=== PATIENT | female | born 1990 | race African-American/Black ===

== ENCOUNTER 2021-03-10 04:45 | Inpatient (IN) | payer BC ==
[2021-03-10] MEDS: DEXTROSE 5%-LACTATED RINGERS 1,000 ML IV SCH ×3 (05:10→14:00)
[2021-03-10 05:34] VITALS: BMI 35.7
[2021-03-10] MEDS ORDERED: BUTORPHANOL TARTRATE 1 MG/ML VIAL IVPB PRN (05:59)
[2021-03-10] MEDS ORDERED: PROMETHAZINE HCL 25 MG/1 ML VIAL IVPUSH ONE (05:59)
[2021-03-10] MEDS ORDERED: ELECTROLYTE-148 SOLN 1,000 ML IV SCH (06:00)
[2021-03-10] MEDS ORDERED: OXYTOCIN 20 UNITS in 0.9% NS 20 UNIT/1,000 ML INFUS.BAG IV ONE (15:11)
[2021-03-10] MEDS ORDERED: PROMETHAZINE HCL 25 MG/1 ML VIAL ONE (15:40)
[2021-03-10] MEDS ORDERED: BUTORPHANOL TARTRATE 2 MG/ML VIAL ONE (15:40)
[2021-03-10 21:31] LABS: CORD BASE EXCESS -6.2 mmol/L (0-2); CORD HCO3 19.2 mmHg (20-29); CORD PCO2 37.8 mmHg (30-78); CORD pH 7.323 (7.14-7.44)
[2021-03-10] MEDS ORDERED: BENZOCAINE 28 GM HEMORRHOIDAL OINTMENT PR PRN (22:14)
[2021-03-10] MEDS ORDERED: WITCH HAZEL 50% (TUCKS) 40 PAD/JAR PAD TP PRN (22:14)
[2021-03-10] MEDS ORDERED: METHYLERGONOVINE MALEATE 0.2 MG/1 ML AMP IM PRN (22:14)
[2021-03-10] MEDS ORDERED: oxyCODONE HCL 5 MG TABLET PO PRN (22:14)
[2021-03-10] MEDS ORDERED: BISACODYL 10 MG SUPP.RECT PR PRN (22:14)
[2021-03-10] MEDS ORDERED: ACETAMINOPHEN 325 MG TABLET (FP) PO PRN (22:14)
[2021-03-10] MEDS ORDERED: OXYTOCIN 20 UNITS in 0.9% NS 20 UNIT/1,000 ML INFUS.BAG IV SCH (22:30)
[2021-03-10] MEDS: IBUPROFEN 600 MG TABLET (FP) PO PRN (23:19)
[2021-03-10] MEDS: BENZOCAINE 20% 57 GM BOTTLE TP PRN (23:20)
[2021-03-11 07:17] LABS: BASO % 0.6 % (0-2.0); EOS % 0.2 % (0-4.5); HEMATOCRIT 34.3 % (32.4-45.2); HEMOGLOBIN 12.1 GM/dL (10.7-15.3); LYMPH % 14.7 % (8-40); MCH 32.1 pg (25.7-33.7); MCHC 35.3 g/dl (32.0-36.0); MEAN CELL VOLUME 91.1 fl (80-96); MEAN PLT VOLUME 9.2 fl (7.5-11.1); NEUT % 72.5 % (42.8-82.8); PLATELET COUNT 147 10^3/uL (134-434); RBC 3.76 M/mm3 (3.60-5.2); RDW 13.7 % (11.6-15.6); WHITE BLOOD COUNT 9.1 K/mm3 (4.0-10.0)
[2021-03-11] MEDS: IBUPROFEN 600 MG TABLET (FP) PO PRN ×2 (10:13→22:16)
[2021-03-11] MEDS ORDERED: SENNOSIDES/DOCUSATE COMBO (SENNA PLUS) TABLET (UD) PO SCH (22:00)
[2021-03-12] MEDS: IBUPROFEN 600 MG TABLET (FP) PO PRN (09:31)
[2021-03-12] MEDS: BENZOCAINE 20% 57 GM BOTTLE TP PRN (09:44)
[2021-03-12 14:00] VITALS: BP 118/68; PULSE 76; TEMP 98.2
== END 2021-03-12 13:30 | disposition home or self-care (01) | DRG 807 ==
LOC: JDEL 04:45 → JLDR 05:10 → J3W 22:27
PROVIDERS: ADMIT Obstetrics & Gynecology; ATTEND Obstetrics & Gynecology
PROC: 10E0XZZ Delivery of Products of Conception, External Approach (ICD-10-PCS; principal; 2021-03-10)
PROC: 10907ZC Drainage of Amniotic Fluid, Therapeutic from Products of Conception, Via Natural or Artificial Opening (ICD-10-PCS; 2021-03-10)
DX: O70.0 First degree perineal laceration during delivery (principal); O77.0 Labor and delivery complicated by meconium in amniotic fluid; Z37.0 Single live birth; Z3A.40 40 weeks gestation of pregnancy
CPT/HCPCS: 36415; 36600; 59409; 82803; 85025